=== PATIENT | male | born 1960 | race American Indian/Alaskan Native ===

== ENCOUNTER 2018-01-05 11:00 | Day surgery (SDC) | payer OTHER ==
[2018-01-05] MEDS: NACL 0.9% 1000 ML 1,000 ML IV SCH ×2 (12:30→14:47)
--- NOTE | 2018-01-05 12:50 | Anesthesia Day of Surgery ---
Anesthesia Day of Surgery - Day of Surgery Patient Examined: Yes Patient H&P Reviewed: Yes Patient is NPO: Yes
--- NOTE | 2018-01-05 12:50 | Anesthesia Consultation ---
Anesthesia Consult and Med Hx Date of service: 01/05/18 - Airway Anesthetic Teeth Evaluation: Good ROM Head & Neck: Adequate Mental/Hyoid Distance: Adequate Mallampati Class: Class II Intubation Access Assessment: Probably Good - Pre-Operative Health Status ASA Pre-Surgery Classification: ASA2 Proposed Anesthetic Plan: MAC - Other Systems Hx Cancer: No (HIV)
[2018-01-05] MEDS ORDERED: DIPRIVAN 10 MG/ML IV ONE (13:30)
--- NOTE | 2018-01-05 14:00 | Discharge Summary ---
Short Stay Discharge Plan Activity: advance as tolerated Weight Bearing Status: Weight Bear as Tolerated Diet: regular Follow up with: BASIA LINARES MD [Primary Care Provider] - 7 Days
--- NOTE | 2018-01-05 14:03 | Operative Report ---
Operative Report Operative Report: Date of procedure: 01/05/2018 Procedure: Colonoscopy. Attending physician: Supa Norris MD Supervisor [employer]: Supa Norris MD Indication: Patient is a 57-year-old male who presents for screening colonoscopy. A colonoscopy serves to evaluate patient for colorectal cancer screening. Consent: Informed consent was obtained after advising the patient and family regarding nature of this procedure, its indications, potential benefits as well as possible complications including but not limited to bleeding perforation and adverse reaction to medication, infection as well as other cardiopulmonary complications. An informed written and verbal consent was then obtained after due opportunity was provided for questions and answers. Monitoring: Patient was monitored continuously with pulse oximetry and electrocardiographic recordings as well as blood pressure recordings. Vital signs remained stable throughout this procedure with no untoward events. Preoperative assessment: Patient was assessed immediately prior to this procedure for capacity to tolerate monitored anesthesia care and moderate sedation as well as general anesthesia. Patient's ASA classification is 2, Mallampati class is 2, Hyomental distance is 3. Instrument: getuppinon video colonoscope Medications: Propofol given intravenously in divided doses. For details please refer to anesthesia records. Description of procedure: Patient was placed in the left lateral decubitus position after achieving sedation, a digital rectal examination was performed following which the colonoscope was introduced into the anal verge and advanced to the cecum which was identified by the cecal valve, the appendiceal orifice, as well as by the cecal strap and direct transillumination. The colonoscope was subsequently withdrawn with careful inspection of all mucosal surfaces. Patient tolerated this procedure well and was subsequently taken to the recovery room. The following findings were noted. Findings: The entirety of the colon was normal. On the retroflex view at the anal verge, patient had internal hemorrhoids. Impression: Normal colonoscopy. Internal hemorrhoids. Plan: High-fiber diet. Repeat colonoscopy in 10 years.
[2018-01-05] MEDS ORDERED: XYLOCAINE MPF 2% ONE (14:30)
[2018-01-05 14:47] VITALS: BP 120/79
== END 2018-01-05 11:01 | disposition home or self-care (01) ==
LOC: GIO 11:00
PROVIDERS: ATTEND Internal Medicine Gastroenterology
DX: Z12.11 Encounter for screening for malignant neoplasm of colon (principal); K64.8 Other hemorrhoids; Z21 Asymptomatic human immunodeficiency virus [HIV] infection status
CPT/HCPCS: 45378; J2704; J7030

== ENCOUNTER 2022-03-31 03:44 | Inpatient (IN) | payer OTHER ==
--- NOTE | 2022-03-31 05:25 | Cat Scan Report ---
CT HEAD WITHOUT CONTRAST INDICATION / CLINICAL INFORMATION: pass out, hit his head and face. TECHNIQUE: All CT scans at this location are performed using CT dose reduction for ALARA by means of automated exposure control. COMPARISON: None available. FINDINGS: HEMORRHAGE: None. EXTRA-AXIAL SPACES: Normal in size and morphology for the patient's age. VENTRICULAR SYSTEM: Normal in size and morphology for the patient's age. CEREBRAL PARENCHYMA: No significant abnormality. No acute territorial infarct. MIDLINE SHIFT / HERNIATION: None. CEREBELLUM / BRAINSTEM: No significant abnormality. ORBITS: Normal as visualized SOFT TISSUES: No significant abnormality. SKULL: No significant abnormality. PARANASAL SINUSES / MASTOID AIR CELLS: Normal as visualized ADDITIONAL FINDINGS: None. IMPRESSION: 1. No acute intracranial abnormality. Signer Name: Sameer Falcon DO Signed: 03/31/2022 5:21 AM Workstation Name: [id number]
[2022-03-31] MEDS ORDERED: SODIUM CHLORIDE 0.9% 1000 ML 1,000 ML IV ONE (11:42)
[2022-03-31] MEDS ORDERED: TETANUS,DIPH,PERTUSS(ACELL) VACCINE 0.5 ML SYRINGE IM ONE (11:42)
[2022-03-31] MEDS ORDERED: MORPHINE 4 MG/1 ML INJ IV ONE (11:42)
[2022-03-31] MEDS ORDERED: ONDANSETRON 4 MG/2 ML INJ IV ONE (11:42)
--- NOTE | 2022-03-31 11:44 | Emergency Department Report ---
ED General Adult HPI - General Chief complaint: Syncope Stated complaint: PASSED OUT Time Seen by Provider: 03/31/22 11:16 Source: patient, RN notes reviewed Mode of arrival: Ambulatory Limitations: Physical Limitation - History of Present Illness Initial comments: The patient was evaluated in the emergency department for symptoms described in the history of present illness. He/she was evaluated in the context of the global COVID-19 pandemic, which necessitated consideration that the patient might be at risk for infection with the virus that causes COVID-19. Institutional protocols and algorithms that pertain to the evaluation of patients at risk for COVID-19 are in a state of rapid change based on information released by regulatory bodies including the CDC and federal and state organizations. These policies and algorithms were followed during the patient's care in the emergency department. Please note that these policies, procedures and recommendations changed on a rapid basis. This is a 61-year-old gentleman, who is right-hand dominant, with a history of HIV, currently compliant with antiviral therapy, reports undetectable viral l oad, also with a history of PTSD. The patient presents to the department today with a complaint of unprovoked syncope yesterday. He states that he was walking, and without warning, he suddenly lost consciousness, landing on a ceramic table, hitting his right anterior chest, right forearm, right bicep, and right face. Prior to the event, he denies headache, neck pain, chest pain, abdominal pain, shortness of breath. He denies travel, surgery, immobilization, DVT and pulmonary embolism risk factors. After the impact, he complains of facial pain, dental pain, anterior chest wall pain, right forearm pain, and right hand pain. No recent medication changes. No recreational drug use. No urinary symptoms. -: Sudden Location: head, face, chest, right, upper extremity Quality: aching Consistency: constant Improves with: rest Worsens with: movement - Related Data Home Medications Medication Instructions Recorded Confirmed Last Taken Abacavir/Dolutegravir/Lamivudi 1 tab PO QDAY 01/05/18 01/05/18 01/03/18 [Triumeq (Nf)] Allergies Allergy/AdvReac Type Severity Reaction Status Date / Time No Known Allergies Allergy Verified 03/31/22 04:40 ED Review of Systems ROS: Stated complaint: PASSED OUT Other details as noted in HPI Constitutional: denies: fever Eyes: denies: vision change ENT: dental pain Respiratory: denies: cough Cardiovascular: chest pain Gastrointestinal: denies: abdominal pain Musculoskeletal: arthralgia, myalgia Neurological: denies: weakness Psychiatric: anxiety Hematological/Lymphatic: denies: easy bleeding ED Past Medical Hx - Past Medical History Previous Medical History?: Yes Hx Diabetes: No Hx HIV: Yes - Surgical History Past Surgical History?: Yes Additional Surgical History: hemorrhoid removal - Social History Smoking Status: Never Smoker Substance Use Type: None - Medications Home Medications: Home Medications Medication Instructions Recorded Confirmed Last Taken Type Abacavir/Dolutegravir/Lamivudi 1 tab PO QDAY 01/05/18 01/05/18 01/03/18 History [Triumeq (Nf)] ED Physical Exam - General Limitations: No Limitations General appearance: alert, in no apparent distress - Head Head exam: Present: atraumatic, normocephalic - Eye Eye exam: Present: normal appearance, EOMI. Absent: nystagmus - ENT ENT exam: Present: normal orophraynx, mucous membranes moist, normal external ear exam, other (Multiple tender teeth. There is a lip abrasion. There is no stridor. There is no dysphonia.). Absent: normal exam - Neck Neck exam: Present: normal inspection, full ROM. Absent: tenderness, meningismus - Respiratory Respiratory exam: Present: normal lung sounds bilaterally, chest wall tenderness, other (There is a right anterior thoracic ecchymosis). Absent: respiratory distress, wheezes, rales, rhonchi, stridor - Cardiovascular Cardiovascular Exam: Present: regular rate, normal rhythm, normal heart sounds. Absent: bradycardia, tachycardia, irregular rhythm, systolic murmur, diastolic murmur, rubs, gallop - GI/Abdominal GI/Abdominal exam: Present: soft. Absent: distended, tenderness, guarding, rebound, rigid, pulsatile mass - Rectal Rectal exam: Present: deferred - Extremities Exam Extremities exam: Present: tenderness (There is right hand tenderness), normal capillary refill, other (2+ pulses noted in the bilateral upper and lower extremities. There is no long bony tenderness. The muscular compartments are soft. The pelvis is stable. The right hand, and forearm are tender.). Absent: normal inspection (There is right bicep ecchymosis), calf tenderness - Back Exam Back exam: Present: normal inspection. Absent: tenderness, CVA tenderness (R), CVA tenderness (L), paraspinal tenderness, vertebral tenderness - Neurological Exam Neurological exam: Present: alert, oriented X3, other (No facial droop. Tongue midline. Extraocular movements intact bilaterally. Facial sensation intact to light touch in V1, V2, V3 distribution bilaterally. 5 and a 5 strength in 4 extremities. Sensation intact to light touch in 4 extremities.). Absent: motor sensory deficit - Psychiatric Psychiatric exam: Present: anxious - Skin Skin exam: Present: warm, abrasion, ecchymosis ED Course Vital Signs 03/31/22 04:36 Temperature 99.0 F Pulse Rate 75 Respiratory 18 Rate Blood Pressure 117/81 [Left] O2 Sat by Pulse 98 Oximetry - Reevaluation(s) Reevaluation #1: 03/31/22 14:05 Differential diagnosis, including but not limited to: Orthostasis, vagal event, structural cardiac disease, electrolyte derangement, thyroid derangement, closed head injury, facial bone injury, dental injury, chest wall contusion, right arm sprain, strain, fracture, dislocation Assessment and plan: 61-year-old gentleman, with unprovoked syncope. In terms of syncope, obtain appropriate laboratory studies, and CT angiogram chest, given elevated D-dimer. EKG nonspecific. Place patient on nuclear monitoring technician, and treat his pain and symptoms. In terms of traumatic injuries from syncope, obtain CT scan of the brain, which is negative. Obtain CT scan facial bones. Administer tetanus vaccination, and administer pain medication. Patient advised that he will need to follow-up with an outpatient dentist for his dentalgia. Right upper extremity x-rays were obtained, which showed no fracture, dislocation. Administer pain medication, placed patient in a splint. Please note that patient has had a delay in disposition, secondary to a very long time required to obtain his laboratory studies and subsequently result his laboratory studies. Have communicated with director of laboratory studies, who is currently addressing this. I also discussed the plan of care with the patient, who is agreeable to the plan of care. 03/31/22 17:17 CT scan of the chest negative for pulmonary embolism. Admitted to the care of hospital physician, Dr. Hanny Rendon ED Medical Decision Making - Lab Data Result diagrams: 03/31/22 12:51 03/31/22 12:51 Vital Signs 03/31/22 04:36 Temperature 99.0 F Pulse Rate 75 Respiratory 18 Rate Blood Pressure 117/81 [Left] O2 Sat by Pulse 98 Oximetry Lab Results 03/31/22 03/31/22 03/31/22 Range/Units 12:51 12:51 12:51 WBC 10.0 (4.5-11.0) K/mm3 RBC 4.76 (3.65-5.03) M/mm3 Hgb 13.7 (11.8-15.2) gm/dl Hct 42.8 (35.5-45.6) % MCV 90 (84-94) fl MCH 29 (28-32) pg MCHC 32 (32-34) % RDW 13.5 (13.2-15.2) % Plt Count 211 (140-440) K/mm3 Lymph % (Auto) 10.0 L (13.4-35.0) % Reagan % (Auto) 6.4 (0.0-7.3) % Eos % (Auto) 0.6 (0.0-4.3) % Baso % (Auto) 0.7 (0.0-1.8) % Lymph # (Auto) 1.0 L (1.2-5.4) K/mm3 Reagan # (Auto) 0.6 (0.0-0.8) K/mm3 Eos # (Auto) 0.1 (0.0-0.4) K/mm3 Baso # (Auto) 0.1 (0.0-0.1) K/mm3 Seg Neutrophils % 82.3 H (40.0-70.0) % Seg Neutrophils # 8.2 H (1.8-7.7) K/mm3 PT 14.3 (12.2-14.9) Sec. INR 0.97 (0.87-1.13) D-Dimer 787.78 H (0-234) ng/mlDDU Sodium 139 (137-145) mmol/L Potassium 4.0 (3.6-5.0) mmol/L Chloride 105.3 (98-107) mmol/L Carbon Dioxide 22 (22-30) mmol/L Anion Gap 16 mmol/L BUN 12 (9-20) mg/dL Creatinine 1.1 (0.8-1.3) mg/dL Estimated GFR > 60 ml/min BUN/Creatinine Ratio 11 % Glucose 82 (75-100) mg/dL Calcium 9.4 (8.4-10.2) mg/dL Magnesium 2.10 (1.7-2.3) mg/dL Total Bilirubin 0.70 (0.1-1.2) mg/dL AST 15 (5-40) units/L ALT 7 (7-56) units/L Alkaline Phosphatase 81 (35-129) units/L Total Creatine Kinase 176 H (55-170) units/L Troponin T < 0.010 (0.00-0.029) ng/mL Total Protein 7.6 (6.3-8.2) g/dL Albumin 4.2 (3.9-5) g/dL Albumin/Globulin Ratio 1.2 % - EKG Data -: EKG Interpreted by Co EKG shows normal: sinus rhythm Rate: normal - EKG Data When compared to previous EKG there are: previous EKG unavailable 03/31/22 14:00 The EKG is interpreted at 12: 24 Sinus rhythm, 62 bpm. Normal axis, normal intervals, left ventricular hypertrophy. Abnormal EKG. Not a STEMI. No prior for comparison. - Radiology Data Radiology results: pending, report reviewed, image reviewed Right forearm 2 views INDICATION: Right forearm pain IMPRESSION: No acute abnormality. Signer Name: Vernon Hamilton MD Signed: 03/31/2022 11:18 AM Workstation Name: [employer] Right elbow 3 views INDICATION: Right elbow pain after injury IMPRESSION: No fracture or subluxation. Signer Name: Vernon Hamilton MD Signed: 03/31/2022 11:18 AM Workstation Name: [id number] Right hand 4 views INDICATION: Right hand pain after injury IMPRESSION: No fracture or subluxation identified. Signer Name: Vernon Hamilton MD Signed: 03/31/2022 11:17 AM Workstation Name: [employer] CT HEAD WITHOUT CONTRAST INDICATION / CLINICAL INFORMATION: pass out, hit his head and face. TECHNIQUE: All CT scans at this location are performed using CT dose reduction for ALARA by means of automated exposure control. COMPARISON: None available. FINDINGS: HEMORRHAGE: None. EXTRA-AXIAL SPACES: Normal in size and morphology for the patient's age. VENTRICULAR SYSTEM: Normal in size and morphology for the patient's age. CEREBRAL PARENCHYMA: No significant abnormality. No acute territorial infarct. MIDLINE SHIFT / HERNIATION: None. CEREBELLUM / BRAINSTEM: No significant abnormality. ORBITS: Normal as visualized SOFT TISSUES: No significant abnormality. SKULL: No significant abnormality. PARANASAL SINUSES / MASTOID AIR CELLS: Normal as visualized ADDITIONAL FINDINGS: None. IMPRESSION: 1. No acute intracranial abnormality. Signer Name: Sameer Falcon DO Signed: 03/31/2022 4:21 AM Workstation Name: [id number] CT MAXILLOFACIAL WITHOUT CONTRAST INDICATION / CLINICAL INFORMATION: syncope, facial trauma. TECHNIQUE: All CT scans at this location are performed using CT dose reduction for ALARA by means of automated exposure control. COMPARISON: None available. FINDINGS: FACIAL BONES: There is well-corticated lucency along the anterior midline maxilla without significant adjacent edema which may be related to previous trauma and correlation would be needed. There is no clear CT evidence of displaced fracture involving the facial bones. The orbital turner, sinuses and zygomatic arches are intact. PARANASAL SINUSES: The paranasal sinuses are clear without air-fluid levels at. This mild deviation of the nasal septum toward the left. ORBITS: The optic globes demonstrate appropriate size and configuration. No significant post septal inflammatory changes are identified. VISUALIZED INTRACRANIAL STRUCTURES: The CT brain will be dictated separately. ADDITIONAL FINDINGS: None. IMPRESSION: 1. There is well-corticated lucency along the anterior midline maxilla as detailed above and correlation would be needed regarding area of recent trauma. Otherwise, the CT facial bones. Intact without clear evidence of acute displaced fracture. Signer Name: Antoine Krishna MD Signed: 03/31/2022 3:19 PM Workstation Name: [id number] [facility], [place] [address] [place] [address] Cat Scan Report Signed Patient: VINCENT VIDES MR#: [id number] : 1960 Acct:[id number] Age/Sex: 61 / M ADM Date: 03/31/22 Loc: ED Attending Dr: Ordering Physician: ANTOINE GAGNON MD Date of Service: 03/31/22 Procedure(s): CT angio chest Accession Number(s): [id number] cc: ANTOINE GAGNON MD CTA CHEST WITH CONTRAST INDICATION / CLINICAL INFORMATION: unprovoked syncope, chest wall trauma. TECHNIQUE: Axial CT images were obtained through the chest after injection of IV contrast. 3 plane MIP and/or 3D reconstructions were produced. All CT scans at this location are performed using CT dose reduction for ALARA by means of automated exposure control. COMPARISON: None available. FINDINGS: PULMONARY EMBOLUS: None. THORACIC AORTA: No significant abnormality. HEART: No significant abnormality. CORONARY ARTERY CALCIFICATION: Absent -- None. MEDIASTINUM / BUNNY: No significant abnormality. PLEURA: No pleural effusion. No pneumothorax. LUNGS: No acute air space or interstitial disease. ADDITIONAL FINDINGS: Enlarged left thyroid goiter measuring 4 cm UPPER ABDOMEN: Simple bilateral renal cysts, incompletely visualized with largest cyst in right kidney measuring at least 3.5 cm. Indeterminate 1.5 cm hypodense lesion right hepatic lobe image 98. SKELETAL STRUCTURES: No significant osseous abnormality. IMPRESSION: 1. No CT evidence for pulmonary embolism. 2. No acute findings. 3. 4 cm left thyroid goiter 4. Indeterminate 1.5 cm hypodense liver lesion. Recommend three-phase CT to confirm presence or absence of hemangioma Signer Name: Mau Shrestha MD Signed: 03/31/2022 5:10 PM Workstation Name: [id number] Transcribed By: TL Dictated By: Mau Shrestha MD Electronically Authenticated By: Mau Shrestha MD Signed Date/Time: 03/31/221709 DD/ 06 Critical care attestation.: If time is entered above; I have spent that time in minutes in the direct care of this critically ill patient, excluding procedure time. ED Disposition Clinical Impression: Syncope, Closed head injury, Chest wall contusion, Right arm pain, Lip abrasion, Dentalgia Disposition: 09 ADMITTED INPATIENT Is pt being admited?: Yes Condition: Good Instructions: Syncope (ED) Referrals: PRIMARY CARE, [Primary Care Provider] - 3-5 Days
--- NOTE | 2022-03-31 12:22 | XRay Report ---
Right elbow 3 views INDICATION: Right elbow pain after injury IMPRESSION: No fracture or subluxation. Signer Name: Vernon Hamilton MD Signed: 03/31/2022 12:18 PM Workstation Name: [email or web address]
--- NOTE | 2022-03-31 12:22 | XRay Report ---
Right hand 4 views INDICATION: Right hand pain after injury IMPRESSION: No fracture or subluxation identified. Signer Name: Vernon Hamilton MD Signed: 03/31/2022 12:17 PM Workstation Name: [email or web address]
--- NOTE | 2022-03-31 12:22 | XRay Report ---
Right forearm 2 views INDICATION: Right forearm pain IMPRESSION: No acute abnormality. Signer Name: Vernon Hamilton MD Signed: 03/31/2022 12:18 PM Workstation Name: [email or web address]
[2022-03-31 13:39] LABS: Basophils # (Auto) 0.1 K/mm3 (0.0-0.1); Basophils % (Auto) 0.7 % (0.0-1.8); Eosinophils # (Auto) 0.1 K/mm3 (0.0-0.4); Eosinophils % (Auto) 0.6 % (0.0-4.3); Hematocrit 42.8 % (35.5-45.6); Hemoglobin 13.7 gm/dl (11.8-15.2); Mean Corpuscular HGB Conc 32 % (32-34); Mean Corpuscular Volume 90 fl (84-94); Monocytes # (Auto) 0.6 K/mm3 (0.0-0.8); Monocytes % (Auto) 6.4 % (0.0-7.3); Platelet Count 211 K/mm3 (140-440); Red Blood Count 4.76 M/mm3 (3.65-5.03); Red Cell Distribution Width 13.5 % (13.2-15.2)
[2022-03-31 13:50] LABS: INR 0.97 (0.87-1.13)
[2022-03-31 14:05] LABS: Alanine Aminotransferase 7 units/L (7-56); Albumin 4.2 g/dL (3.9-5); BUN/Creatinine Ratio 11; Blood Urea Nitrogen 12 mg/dL (9-20); Calcium 9.4 mg/dL (8.4-10.2); Hemolysis Index 16
--- NOTE | 2022-03-31 16:24 | Cat Scan Report ---
CT MAXILLOFACIAL WITHOUT CONTRAST INDICATION / CLINICAL INFORMATION: syncope, facial trauma. TECHNIQUE: All CT scans at this location are performed using CT dose reduction for ALARA by means of automated e xposure control. COMPARISON: None available. FINDINGS: FACIAL BONES: There is well-corticated lucency along the anterior midline maxilla without significant adjacent edema which may be related to previous trauma and correlation would be needed. There is no clear CT evidence of displaced fracture involving the facial bones. The orbital turner, sinuses and zy gomatic arches are intact. PARANASAL SINUSES: The paranasal sinuses are clear without air-fluid levels at. This mild deviation o f the nasal septum toward the left. ORBITS: The optic globes demonstrate appropriate size and configuration. No significant post septal i nflammatory changes are identified. VISUALIZED INTRACRANIAL STRUCTURES: The CT brain will be dictated separately. ADDITIONAL FINDINGS: None. IMPRESSION: 1. There is well-corticated lucency along the anterior midline maxilla as detailed above and correl ation would be needed regarding area of recent trauma. Otherwise, the CT facial bones. Intact without clear evidence of acute displaced fracture. Signer Name: Antoine Krishna MD Signed: 03/31/2022 4:19 PM Workstation Name: [id number]
--- NOTE | 2022-03-31 17:15 | Cat Scan Report ---
CTA CHEST WITH CONTRAST INDICATION / CLINICAL INFORMATION: unprovoked syncope, chest wall trauma. TECHNIQUE: Axial CT images were obtained through the chest after injection of IV contrast. 3 plane KS P and/or 3D reconstructions were produced. All CT scans at this location are performed using CT dose reduction for ALARA by means of automated exposure control. COMPARISON: None available. FINDINGS: PULMONARY EMBOLUS: None. THORACIC AORTA: No significant abnormality. HEART: No significant abnormality. CORONARY ARTERY CALCIFICATION: Absent -- None. MEDIASTINUM / BUNNY: No significant abnormality. PLEURA: No pleural effusion. No pneumothorax. LUNGS: No acute air space or interstitial disease. ADDITIONAL FINDINGS: Enlarged left thyroid goiter measuring 4 cm UPPER ABDOMEN: Simple bilateral renal cysts, incompletely visualized with largest cyst in right kidne y measuring at least 3.5 cm. Indeterminate 1.5 cm hypodense lesion right hepatic lobe image 98. SKELETAL STRUCTURES: No significant osseous abnormality. IMPRESSION: 1. No CT evidence for pulmonary embolism. 2. No acute findings. 3. 4 cm left thyroid goiter 4. Indeterminate 1.5 cm hypodense liver lesion. Recommend three-phase CT to confirm presence or absen ce of hemangioma Signer Name: Mau Shrestha MD Signed: 03/31/2022 5:10 PM Workstation Name: [id number]
--- NOTE | 2022-03-31 20:18 | History and Physical Report ---
History of Present Illness Date of examination: 03/31/22 Date of admission: 03/31/2022 Chief complaint: Passed out yesterday History of present illness: 61-year-old with history of HIV and no other significant past medical history was apparently walking yesterday and passed out. Patient fell onto the floor and sustained facial abrasions and a small lip cut no chest pain or palpitations. Was not exposed to heat. No excessive exercise or stress or physical activity. No fever or chills. Lost consciousness for few seconds. (If able and her days chest and face and right forearm and. No bleeding laceration. Area of abrasions on her arm and the face. No palpitations. No prior episodes. During my examination patient was talking normally and able to walk around. - Past Medical History --Previous Medical History?: Ye --HIV: Yes - Surgical History --Past Surgical History?: Yes -Additional Surgical History: hemorrhoid removal - Social History --Smoking Status: Never Smoker --Substance Use Type: None - Medications --Home Medications: Home Medications Medication Instructions Recorded Confirmed Last Taken Type Abacavir/Dolutegravir/Lamivudi 1 tab PO QDAY 01/05/18 01/05/18 01/03/18 History [Triumeq (Nf)] Review of Systems ROS: Stated complaint: PASSED OUT Other details as noted in HPI Constitutional: denies: fever Eyes: denies: vision change ENT: dental pain Respiratory: denies: cough Cardiovascular: chest pain Gastrointestinal: denies: abdominal pain Musculoskeletal: arthralgia, myalgia Neurological: denies: weakness Psychiatric: anxiety Hematological/Lymphatic: denies: easy bleeding Medications and Allergies Allergies Allergy/AdvReac Type Severity Reaction Status Date / Time No Known Allergies Allergy Verified 03/31/22 04:40 Home Medications Medication Instructions Recorded Confirmed Last Taken Type Abacavir/Dolutegravir/Lamivudi 1 tab PO QDAY 01/05/18 01/05/18 01/03/18 History [Triumeq (Nf)] Exam - Constitutional Vitals: Temp Pulse Resp BP Pulse Ox 99.0 F 89 18 125/75 98 03/31/22 04:36 03/31/22 17:51 03/31/22 04:36 03/31/22 17:51 03/31/22 04:36 General appearance: Present: no acute distress, well-nourished - EENT Eyes: Present: PERRL ENT: hearing intact, clear oral mucosa - Neck Neck: Present: supple, normal ROM - Respiratory Respiratory effort: normal Respiratory: bilateral: CTA - Cardiovascular Heart rate: 78 Rhythm: regular Heart Sounds: Present: S1 & S2. Absent: rub, click - Extremities Extremities: no ischemia, pulses intact, pulses symmetrical, No edema Peripheral Pulses: within normal limits - Abdominal General gastrointestinal: Present: soft, non-tender, non-distended, normal bowel sounds Male genitourinary: Present: normal - Integumentary Integumentary: Present: clear, warm, dry - Musculoskeletal Musculoskeletal: gait normal, strength equal bilaterally - Psychiatric Psychiatric: appropriate mood/affect, intact judgment & insight - Neurologic Neurologic: CNII-XII intact, moves all extremities - Allied Health Allied health notes reviewed: nursing, case management HEART Score - HEART Score Troponin: Troponin T < 0.010 ng/mL (0.00-0.029) 03/31/22 12:51 Results - Labs CBC & Chem 7: 04/01/22 04:06 04/01/22 04:06 Labs: Laboratory Last Values WBC 10.0 K/mm3 (4.5-11.0) 03/31/22 12:51 RBC 4.76 M/mm3 (3.65-5.03) 03/31/22 12:51 Hgb 13.7 gm/dl (11.8-15.2) 03/31/22 12:51 Hct 42.8 % (35.5-45.6) 03/31/22 12:51 MCV 90 fl (84-94) 03/31/22 12:51 MCH 29 pg (28-32) 03/31/22 12:51 MCHC 32 % (32-34) 03/31/22 12:51 RDW 13.5 % (13.2-15.2) 03/31/22 12:51 Plt Count 211 K/mm3 (140-440) 03/31/22 12:51 Lymph % (Auto) 10.0 % (13.4-35.0) L 03/31/22 12:51 [place] % (Auto) 6.4 % (0.0-7.3) 03/31/22 12:51 Eos % (Auto) 0.6 % (0.0-4.3) 03/31/22 12:51 Baso % (Auto) 0.7 % (0.0-1.8) 03/31/22 12:51 Lymph # (Auto) 1.0 K/mm3 (1.2-5.4) L 03/31/22 12:51 [place] # (Auto) 0.6 K/mm3 (0.0-0.8) 03/31/22 12:51 Eos # (Auto) 0.1 K/mm3 (0.0-0.4) 03/31/22 12:51 Baso # (Auto) 0.1 K/mm3 (0.0-0.1) 03/31/22 12:51 Seg Neutrophils % 82.3 % (40.0-70.0) H 03/31/22 12:51 Seg Neutrophils # 8.2 K/mm3 (1.8-7.7) H 03/31/22 12:51 PT 14.3 Sec. (12.2-14.9) 03/31/22 12:51 INR 0.97 (0.87-1.13) 03/31/22 12:51 D-Dimer 787.78 ng/mlDDU (0-234) H 03/31/22 12:51 Sodium 139 mmol/L (137-145) 03/31/22 12:51 Potassium 4.0 mmol/L (3.6-5.0) 03/31/22 12:51 Chloride 105.3 mmol/L (98-107) 03/31/22 12:51 Carbon Dioxide 22 mmol/L (22-30) 03/31/22 12:51 Anion Gap 16 mmol/L 03/31/22 12:51 BUN 12 mg/dL (9-20) 03/31/22 12:51 Creatinine 1.1 mg/dL (0.8-1.3) 03/31/22 12:51 Estimated GFR > 60 ml/min 03/31/22 12:51 BUN/Creatinine Ratio 11 % 03/31/22 12:51 Glucose 82 mg/dL (75-100) 03/31/22 12:51 Calcium 9.4 mg/dL (8.4-10.2) 03/31/22 12:51 Magnesium 2.10 mg/dL (1.7-2.3) 03/31/22 12:51 Total Bilirubin 0.70 mg/dL (0.1-1.2) 03/31/22 12:51 AST 15 units/L (5-40) 03/31/22 12:51 ALT 7 units/L (7-56) 03/31/22 12:51 Alkaline Phosphatase 81 units/L (35-129) 03/31/22 12:51 Total Creatine Kinase 176 units/L (55-170) H 03/31/22 12:51 Troponin T < 0.010 ng/mL (0.00-0.029) 03/31/22 12:51 Total Protein 7.6 g/dL (6.3-8.2) 03/31/22 12:51 Albumin 4.2 g/dL (3.9-5) 03/31/22 12:51 Albumin/Globulin Ratio 1.2 % 03/31/22 12:51 TSH 0.536 mlU/mL (0.270-4.200) 03/31/22 12:51 Short CBC 03/31/22 Range/Units 12:51 WBC 10.0 (4.5-11.0) K/mm3 Hgb 13.7 (11.8-15.2) gm/dl Hct 42.8 (35.5-45.6) % Plt Count 211 (140-440) K/mm3 BMP 03/31/22 12:51 Sodium 139 Potassium 4.0 Chloride 105.3 Carbon Dioxide 22 BUN 12 Creatinine 1.1 Glucose 82 Calcium 9.4 Cardiac Enzymes 03/31/22 Range/Units 12:51 Total Creatine Kinase 176 H (55-170) units/L Troponin T < 0.010 (0.00-0.029) ng/mL Liver Function 03/31/22 Range/Units 12:51 Total Bilirubin 0.70 (0.1-1.2) mg/dL AST 15 (5-40) units/L ALT 7 (7-56) units/L Alkaline Phosphatase 81 (35-129) units/L Albumin 4.2 (3.9-5) g/dL Short CBC 03/31/22 04/01/22 Range/Units 12:51 04:06 WBC 10.0 8.7 (4.5-11.0) K/mm3 Hgb 13.7 13.0 (11.8-15.2) gm/dl Hct 42.8 39.5 (35.5-45.6) % Plt Count 211 208 (140-440) K/mm3 BMP 03/31/22 04/01/22 12:51 04:06 Sodium 139 141 Potassium 4.0 3.7 Chloride 105.3 107.9 H Carbon Dioxide 22 22 BUN 12 11 Creatinine 1.1 1.2 Glucose 82 87 Calcium 9.4 8.7 Cardiac Enzymes 03/31/22 Range/Units 12:51 Total Creatine Kinase 176 H (55-170) units/L Troponin T < 0.010 (0.00-0.029) ng/mL Liver Function 03/31/22 04/01/22 Range/Units 12:51 04:06 Total Bilirubin 0.70 0.70 (0.1-1.2) mg/dL AST 15 14 (5-40) units/L ALT 7 7 (7-56) units/L Alkaline Phosphatase 81 65 (35-129) units/L Albumin 4.2 3.7 L (3.9-5) g/dL - Imaging and Cardiology EKG: report reviewed (Sinus rhythm heart rate of 68/min) Assessment and Plan Advance Directives: Yes (Full code) VTE prophylaxis?: Chemical Plan of care discussed with patient/family: Yes - Patient Problems (1) Syncope Current Visit: Yes Status: Acute Plan to address problem: Probably vasovagal No etiology can be established IV fluids Echocardiogram and carotid duplex scan Lexiscan as outpatient if necessary--- no chest pain (2) HIV (human immunodeficiency virus infection) Current Visit: Yes Status: Chronic Qualifiers: HIV symptom status: asymptomatic, with no history of HIV-related illness Qualified Code(s): Z21 - Asymptomatic human immunodeficiency virus [HIV] infection status Plan to address problem: On antiretrovirals and very compliant (3) DVT prophylaxis Current Visit: Yes Status: Acute Plan to address problem: On heparin and GI prophylaxis (4) Advance care planning Current Visit: Yes Status: Acute Plan to address problem: Disease disease education conducted, care plan discussed, diagnosis discussed, prognosis discussed. Patient is full code. Patient acknowledges understanding and agreement with care plan. +30 minutes.
[2022-03-31] MEDS ORDERED: oxyCODONE /ACETAMINOPHEN 5-325MG TAB PO PRN (20:19)
[2022-03-31] MEDS ORDERED: ONDANSETRON 4 MG/2 ML INJ IV PRN (20:19)
[2022-03-31] MEDS ORDERED: HYDROmorphone 0.5 MG/0.5 ML INJ IV PRN (20:19)
[2022-03-31] MEDS ORDERED: ACETAMINOPHEN 325 MG TAB PO PRN (20:19)
[2022-03-31] MEDS ORDERED: METOCLOPRAMIDE 10 MG/2 ML INJ IV PRN (20:19)
[2022-03-31] MEDS ORDERED: SODIUM CHLORIDE 0.9% 1000 ML 1,000 ML IV SCH (20:30)
[2022-03-31] MEDS: FAMOTIDINE 20 MG TAB PO SCH (23:26)
[2022-04-01 05:05] LABS: Basophils # (Auto) 0.1 K/mm3 (0.0-0.1); Basophils % (Auto) 0.7 % (0.0-1.8); Eosinophils # (Auto) 0.2 K/mm3 (0.0-0.4); Eosinophils % (Auto) 1.8 % (0.0-4.3); Hematocrit 39.5 % (35.5-45.6); Lymphocytes # (Auto) 1.5 K/mm3 (1.2-5.4); Lymphocytes % (Auto) 17.7 % (13.4-35.0); Mean Corpuscular HGB Conc 33 % (32-34); Mean Corpuscular Volume 90 fl (84-94); Monocytes # (Auto) 0.9 K/mm3 (0.0-0.8); Monocytes % (Auto) 10.1 % (0.0-7.3); Platelet Count 208 K/mm3 (140-440); Red Blood Count 4.42 M/mm3 (3.65-5.03); Red Cell Distribution Width 13.5 % (13.2-15.2)
[2022-04-01 05:26] LABS: Alanine Aminotransferase 7 units/L (7-56); Albumin 3.7 g/dL (3.9-5); BUN/Creatinine Ratio 9; Blood Urea Nitrogen 11 mg/dL (9-20); Calcium 8.7 mg/dL (8.4-10.2); Hemolysis Index 6
[2022-04-01] MEDS: HEPARIN 5,000 UNIT/1 ML VIAL SUB-Q SCH ×2 (05:59→09:53)
--- NOTE | 2022-04-01 09:28 | Discharge Summary ---
Providers - Providers Date of Admission: 03/31/22 20:19 Date of discharge: 04/01/22 Attending physician: SAPPHIRE JAMES MD Primary care physician: HEALTH AND WELLNESS COORDINATOR Hospitalization Reason for admission: Syncope, ground-level fall Condition: Good Pertinent studies: Reviewed. Procedures: None. Hospital course: Patient is a 61-year-old male past medical history of HIV (on antiretrovirals) who presented with syncope complicated by a ground-level fall and associated facial abrasions while at home. Patient describes getting up from his bed to walk his puppies and getting lightheaded and warm after 1 episode of nonbloody emesis. Patient describes a loss of consciousness for a few seconds and realizing that he had struck his head against a bedside fixture. Patient then drove himself to the emergency department for further evaluation. On presentation in the ED, the patient was found to be hemodynamically stable. Patient was evaluated with CT head noncontrast, hand x-ray, forearm x-ray, face CT, and elbow x-ray that were all found to be unremarkable. Patient was found to have an elevated D-dimer of [address] angio chest that was unremarkable for pulmonary embolism. The patient has since received IV fluid resuscitation with resolution of symptoms. Patient underwent TTE that was unremarkable. The patient is medically clear for discharge. Disposition: 01 HOME / SELF CARE / HOMELESS Final Discharge Diagnosis (Prints w/discharge instructions): Syncope, ground- level fall, facial contusion, HIV on antiretrovirals Time spent for discharge: 45 min Core Measure Documentation - Palliative Care Palliative Care/ Comfort Measures: Not Applicable - Core Measures Any of the following diagnoses?: none Exam - Constitutional Vitals: Temp Pulse Resp BP Pulse Ox 98.6 F 84 18 108/68 98 04/01/22 04:57 04/01/22 04:57 04/01/22 04:57 04/01/22 07:22 04/01/22 07:54 General appearance: Present: no acute distress, well-nourished - EENT Eyes: Present: PERRL, EOM intact ENT: hearing intact, clear oral mucosa, dentition normal - Neck Neck: Present: supple, normal ROM - Respiratory Respiratory effort: normal Respiratory: bilateral: CTA - Cardiovascular Rhythm: regular Heart Sounds: Present: S1 & S2 - Extremities Extremities: no ischemia, pulses intact, pulses symmetrical, No edema, normal temperature, normal color, Full ROM Peripheral Pulses: within normal limits - Abdominal General gastrointestinal: Present: soft, non-tender, non-distended, normal bowel sounds Male genitourinary: Present: deferred - Rectal Rectal Exam: deferred - Integumentary Integumentary: Present: clear, warm, dry - Musculoskeletal Musculoskeletal: strength equal bilaterally - Psychiatric Psychiatric: appropriate mood/affect, intact judgment & insight, memory intact, cooperative - Neurologic Neurologic: CNII-XII intact, moves all extremities - Allied Health Allied health notes reviewed: nursing Plan Activity: advance as tolerated Diet: regular Additional Instructions: Patient is a 61-year-old male past medical history of HIV (on antiretrovirals) who presented with syncope complicated by a ground- level fall and associated facial abrasions while at home. Patient describes getting up from his bed to walk his puppies and getting lightheaded and warm after 1 episode of nonbloody emesis. Patient describes a loss of consciousness for a few seconds and realizing that he had struck his head against a bedside fixture. Patient then drove himself to the emergency department for further evaluation. On presentation in the ED, the patient was found to be hemodynamically stable. Patient was evaluated with CT head noncontrast, hand x- ray, forearm x-ray, face CT, and elbow x-ray that were all found to be unremarkable. Patient was found to have an elevated D-dimer of [address] angio chest that was unremarkable for pulmonary embolism. The patient has since received IV fluid resuscitation with resolution of symptoms. Patient underwent TTE that was unremarkable. The patient is medically clear for discharge. Care Plan Goals: Patient is medically clear for discharge. Assessment: Patient is a 61-year-old male past medical history of HIV (on antiretrovirals) who presented with syncope complicated by a ground-level fall and associated facial abrasions while at home. Patient describes getting up from his bed to walk his puppies and getting lightheaded and warm after 1 episode of nonbloody emesis. Patient describes a loss of consciousness for a few seconds and realizing that he had struck his head against a bedside fixture. Patient then drove himself to the emergency department for further evaluation. On presentation in the ED, the patient was found to be hemodynamically stable. Patient was evaluated with CT head noncontrast, hand x-ray, forearm x-ray, face CT, and elbow x-ray that were all found to be unremarkable. Patient was found to have an elevated D-dimer of [address] angio chest that was unremarkable for pulmonary embolism. The patient has since received IV fluid resuscitation with resolution of symptoms. Patient underwent TTE that was unremarkable. The patient is medically clear for discharge. Follow up with: PRIMARY CARE, [Primary Care Provider] - 3-5 Days Forms: Work/School Release Form
[2022-04-01] MEDS: FAMOTIDINE 20 MG TAB PO SCH (09:53)
--- NOTE | 2022-04-01 10:48 | Electrocardiograph Report ---
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
[2022-04-01 12:02] VITALS: BP 90/66
== END 2022-04-01 15:18 | disposition home or self-care (01) | DRG 312 ==
LOC: ED 03:44 → 4A 20:19
PROVIDERS: ADMIT Internal Medicine; ATTEND Student in an Organized Health Care Education/Training Program
DX: R55 Syncope and collapse (principal); Z21 Asymptomatic human immunodeficiency virus [HIV] infection status; Z79.899 Other long term (current) drug therapy; W18.39XA Other fall on same level, initial encounter; Y93.89 Activity, other specified; Y92.89 Other specified places as the place of occurrence of the external cause; Y99.8 Other external cause status; F43.10 Post-traumatic stress disorder, unspecified; S20.219A Contusion of unspecified front wall of thorax, initial encounter; M79.601 Pain in right arm; K08.89 Other specified disorders of teeth and supporting structures; S00.511A Abrasion of lip, initial encounter; S00.83XA Contusion of other part of head, initial encounter
CPT/HCPCS: 36415; 70450; 70486; 71275; 80053; 82550; 83735; 84443; 84484; 85025; 85379; 85610; 90715; 93005; 93306; G0378; C8929; J1644; J2270; J2405; J7030; Q9967